=== PATIENT | male | born 1950 | race Native Hawaiian/Other Pacific Islander ===

== ENCOUNTER 2017-06-03 21:15 | Outpatient (CLI) | payer OTHER, MEDICARE ==
[~2017-06-03 21:15] MED LIST: ALLO300T23 PO; AZEL137S; CLARITIN10 MG PO; FERROUS SULF325 M1 OR; FURO40TA93 PO; GABA300C2 PO; HYDR25TA60 PO; LISI20TA11 PO; LORTAB 10-325 M1 TAB PO; NABU750T PO; OMEP40CA PO; PILOCARPINE7.5 MG OR; POTASSIUM CHLO10 ME2 PO; PRAVACHOL20 MG PO; PRED5TAB3 PO; PREDNISONE5 MG OR; SIMV20TA2 PO; TAMSULOSIN0.4 MG PO; TEMA15CA19 PO; TIZA4TAB5 PO
[2017-06-04] MEDS ORDERED: VITAMIN C1 CH1 PO (00:48)
[2017-06-04] MEDS ORDERED: PRINIVIL5 MG OR (00:48)
[2017-06-04] MEDS ORDERED: KLOR-CON SPRIN10 MEQ PO (00:49)
[2017-06-04] MEDS ORDERED: TAMS0.4C PO (00:52)
[2017-06-04] MEDS ORDERED: DOCU100C10 PO (00:52)
[2017-06-04] MEDS ORDERED: OMEP20CA PO (00:53)
[2017-06-04] MEDS ORDERED: GABA300C2 PO (00:54)
[2017-06-04] MEDS ORDERED: PRAVACHOL20 MG PO (00:55)
[2017-06-04] MEDS ORDERED: CODEINE/APAP1 TA2 PO (00:57)
[2017-06-04] MEDS ORDERED: IBUPROFEN200 MG PO (00:59)
[2017-06-04] MEDS ORDERED: TEMA30CA18 PO (01:00)
[2017-06-04] MEDS ORDERED: HYDR10TA47 PO (01:00)
[2017-06-04] MEDS ORDERED: NITROSTAT0.4 MG SL (01:01)
[2017-06-04] MEDS ORDERED: ALPHAGAN P0.1 % OP (01:01)
== END 2017-06-03 21:19 | disposition short-term general hospital (02) ==
LOC: AMB 21:15
DX: R06.09 Other forms of dyspnea (principal); R09.02 Hypoxemia
CPT/HCPCS: A0425; A0427

== ENCOUNTER 2017-06-03 21:23 | Inpatient (IN) | payer OTHER, MEDICARE ==
[~2017-06-03] VITALS: Ht 182.9 cm; Wt 106.7 kg
[2017-06-03 21:29] VITALS: BP 182/93; TEMP 98.4
[2017-06-03 22:10] LABS: PLATELET COUNT 192 K/uL (142-355)
[2017-06-03 22:19] LABS: POTASSIUM 4.2 mmol/L (3.6-5.2)
[2017-06-04] VITALS (8 sets, daily range): BP systolic 115–149; BP diastolic 52–73; TEMP 98–98.7; Ht 182.9 cm; Wt 106.7 kg
[2017-06-04] MEDS ORDERED: VITAMIN C1 CH1 PO (00:48)
[2017-06-04] MEDS ORDERED: PRINIVIL5 MG OR (00:48)
[2017-06-04] MEDS ORDERED: KLOR-CON SPRIN10 MEQ PO (00:49)
[2017-06-04] MEDS ORDERED: TAMS0.4C PO (00:52)
[2017-06-04] MEDS ORDERED: DOCU100C10 PO (00:52)
[2017-06-04] MEDS ORDERED: OMEP20CA PO (00:53)
[2017-06-04] MEDS ORDERED: GABA300C2 PO (00:54)
[2017-06-04] MEDS ORDERED: PRAVACHOL20 MG PO (00:55)
[2017-06-04] MEDS ORDERED: CODEINE/APAP1 TA2 PO (00:57)
[2017-06-04] MEDS ORDERED: IBUPROFEN200 MG PO (00:59)
[2017-06-04] MEDS ORDERED: TEMA30CA18 PO (01:00)
[2017-06-04] MEDS ORDERED: HYDR10TA47 PO (01:00)
[2017-06-04] MEDS ORDERED: ALPHAGAN P0.1 % OP (01:01)
[2017-06-04] MEDS ORDERED: NITROSTAT0.4 MG SL (01:01)
[2017-06-04 06:31] LABS: PLATELET COUNT 121 K/uL (142-355)
[2017-06-04 07:22] LABS: POTASSIUM 4.1 mmol/L (3.6-5.2)
[2017-06-05] VITALS: BP 139/64; TEMP 97.6
[2017-06-05 04:00] VITALS: BP 166/78; TEMP 97.9
[2017-06-05 08:10] VITALS: BP 145/84; TEMP 98.2
[2017-06-05 11:29] VITALS: BP 146/69; TEMP 97.7
[2017-06-05 16:23] VITALS: BP 116/67; TEMP 98.1
[2017-06-05 20:00] VITALS: BP 130/68; TEMP 98.4
[2017-06-06] VITALS: BP 140/64; TEMP 98
[2017-06-06 04:00] VITALS: BP 157/83; TEMP 98.1
[2017-06-06 05:50] LABS: POTASSIUM 3.9 mmol/L (3.6-5.2)
[2017-06-06 06:48] LABS: PLATELET COUNT 187 K/uL (142-355)
[2017-06-06 08:02] VITALS: BP 146/78; TEMP 98
[2017-06-06] MEDS ORDERED: Z-PAK PO (10:02)
[2017-06-06 12:00] VITALS: BP 91/52; TEMP 98.3
== END 2017-06-06 15:40 | disposition home or self-care (01) | DRG 195 ==
LOC: ED 21:23 → MED/SURG 06-04 00:40
PROVIDERS: Family Medicine
DX: J16.8 Pneumonia due to other specified infectious organisms (principal); D72.828 Other elevated white blood cell count; M1A.9XX0 Chronic gout, unspecified, without tophus (tophi); I10 Essential (primary) hypertension; N40.0 Benign prostatic hyperplasia without lower urinary tract symptoms; E78.4 Other hyperlipidemia
CPT/HCPCS: 36415; 36600; 80053; 80202; 82805; 83735; 85027; 87040; 93005; 94640; 94664; 94760; 96361; 96365; 96366; 96367; 99284; J0696; Q9963

== ENCOUNTER 2017-06-17 09:40 | Outpatient (CLI) | payer OTHER, MEDICARE ==
[~2017-06-17 09:40] MED LIST changes: +ALPHAGAN P0.1 % OP; +CODEINE/APAP1 TA2 PO; +DOCU100C10 PO; +HYDR10TA47 PO; +IBUPROFEN200 MG PO; +KLOR-CON SPRIN10 MEQ PO; +NITROSTAT0.4 MG SL; +OMEP20CA PO; +PRINIVIL5 MG OR; +TAMS0.4C PO; +TEMA30CA18 PO; +VITAMIN C1 CH1 PO; +Z-PAK PO
== END 2017-06-17 19:21 | disposition home or self-care (01) ==
LOC: CT 09:40
DX: G40.109 Localization-related (focal) (partial) symptomatic epilepsy and epileptic syndromes with simple partial seizures, not intractable, without status epilepticus (principal); M54.14 Radiculopathy, thoracic region; M54.17 Radiculopathy, lumbosacral region
CPT/HCPCS: 36415; 82565; 84520; Q9963

== ENCOUNTER 2017-09-16 12:45 | Outpatient (CLI) | payer OTHER, MEDICARE | END 2017-09-16 22:41 | disposition home or self-care (01) | LOC: MRI 12:45 | DX: R29.898 Other symptoms and signs involving the musculoskeletal system (principal); G37.3 Acute transverse myelitis in demyelinating disease of central nervous system; M51.36 Other intervertebral disc degeneration, lumbar region; M51.37 Other intervertebral disc degeneration, lumbosacral region ==

== ENCOUNTER 2017-09-17 12:48 | Outpatient (CLI) | payer OTHER, MEDICARE | END 2017-09-17 22:19 | disposition home or self-care (01) | LOC: MRI 12:48 | DX: R29.898 Other symptoms and signs involving the musculoskeletal system (principal); G37.3 Acute transverse myelitis in demyelinating disease of central nervous system; M51.36 Other intervertebral disc degeneration, lumbar region; M51.37 Other intervertebral disc degeneration, lumbosacral region ==

== ENCOUNTER 2017-10-20 13:15 | Emergency (ER) | payer OTHER, MEDICARE ==
[~2017-10-20] VITALS: Ht 182.9 cm; Wt 97.5 kg
[2017-10-20] VITALS (7 sets, daily range): BP systolic 100–114; BP diastolic 62–81; TEMP 98.1
[2017-10-20 14:19] LABS: PLATELET COUNT 234 K/uL (142-355)
[2017-10-20 15:38] LABS: POTASSIUM 5.3 mmol/L (3.6-5.2)
[2017-10-20] MEDS ORDERED: BAYER ASA325 M1 PO (17:14)
[2017-10-20] MEDS ORDERED: ALLERGY RELIEF180 MG PO (17:18)
== END 2017-10-20 21:10 | disposition still patient (30) ==
LOC: ED 13:15 → MED/SURG 15:20 → ED 15:20
PROVIDERS: Family Medicine
DX: I21.4 Non-ST elevation (NSTEMI) myocardial infarction (principal); J18.8 Other pneumonia, unspecified organism; J44.1 Chronic obstructive pulmonary disease with (acute) exacerbation; D72.828 Other elevated white blood cell count; I50.9 Heart failure, unspecified; R68.89 Other general symptoms and signs
CPT/HCPCS: 36415; 80053; 82550; 82553; 83880; 84484; 85027; 93005; 94664; 96361; 96365; 96372; 96375; 99285; J0456; J0696; J1650; J1940

== ENCOUNTER 2017-10-20 21:08 | Outpatient (CLI) | payer OTHER, MEDICARE ==
[~2017-10-20 21:08] MED LIST changes: +ALLERGY RELIEF180 MG PO; +BAYER ASA325 M1 PO
== END 2017-10-20 22:13 | disposition short-term general hospital (02) ==
LOC: AMB 21:08
DX: R53.1 Weakness (principal); R06.02 Shortness of breath
CPT/HCPCS: A0425; A0429

== ENCOUNTER 2017-10-26 17:57 | Outpatient (CLI) | payer OTHER, MEDICARE ==
[2017-10-27] MEDS ORDERED: CLOP75TA2 PO (11:19)
[2017-10-27] MEDS ORDERED: CARV3.12 PO (11:19)
[2017-10-27] MEDS ORDERED: ALLO300T23 PO (11:21)
[2017-10-27] MEDS ORDERED: COZAAR25 MG PO (11:21)
[2017-10-27] MEDS ORDERED: ASPIR-8181 MG PO (11:26)
[2017-10-27] MEDS ORDERED: PRAVACHOL20 MG PO (11:32)
[2017-10-27] MEDS ORDERED: TEMA30CA18 PO (11:33)
== END 2017-10-26 18:58 | disposition short-term general hospital (02) ==
LOC: AMB 17:57
DX: R41.82 Altered mental status, unspecified (principal); Z98.890 Other specified postprocedural states
CPT/HCPCS: A0425; A0427

== ENCOUNTER 2017-10-26 18:48 | Observation (INO) | payer OTHER, MEDICARE ==
[~2017-10-26] VITALS: Ht 185.4 cm; Wt 105.7 kg
[2017-10-26 18:56] VITALS: BP 122/68
[2017-10-26 19:52] LABS: PLATELET COUNT 219 K/uL (142-355)
[2017-10-26 20:03] LABS: POTASSIUM 4.6 mmol/L (3.6-5.2)
[2017-10-26 22:43] LABS: PARTIAL THROMBOPLASTIN TIME 23.6 SECONDS (24.5-33.6)
[2017-10-27 02:21] VITALS: BP 137/72; TEMP 98; Ht 185.4 cm; Wt 105.7 kg
[2017-10-27 04:00] VITALS: BP 130/87; TEMP 98.2
[2017-10-27 06:38] LABS: POTASSIUM 3.8 mmol/L (3.6-5.2)
[2017-10-27 08:00] VITALS: BP 106/52; TEMP 98.1
--- NOTE | 2017-10-27 08:45 | NUR ---
ELEVATED TROP REPORTED TO GUNNAR HIGGINS. REPEAT CE'S ORDERED. PT HAS NAD AND NO COMPLAINTS AT THIS TIME. WILL CONT TO MONITOR.
--- NOTE | 2017-10-27 10:00 | NUR ---
[facility] CONTACTED TO TRY TO GET ROOM ASSIGNMENT. 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
[2017-10-27] MEDS ORDERED: CLOP75TA2 PO (11:19)
[2017-10-27] MEDS ORDERED: CARV3.12 PO (11:19)
[2017-10-27] MEDS ORDERED: ALLO300T23 PO (11:21)
[2017-10-27] MEDS ORDERED: COZAAR25 MG PO (11:21)
[2017-10-27] MEDS ORDERED: ASPIR-8181 MG PO (11:26)
[2017-10-27] MEDS ORDERED: PRAVACHOL20 MG PO (11:32)
[2017-10-27] MEDS ORDERED: TEMA30CA18 PO (11:33)
[2017-10-27 12:00] VITALS: BP 111/53; TEMP 97.6
--- NOTE | 2017-10-27 13:00 | NUR ---
[facility] CALLED WITH ROOM ASSIGNMENT. PT GOING TO PCU ROOM 354.
--- NOTE | 2017-10-27 13:30 | NUR ---
REPORT GIVEN TO CHRIS FROM [facility]. EMS NOTIFIED TO COME GET PT.
--- NOTE | 2017-10-27 13:45 | NUR ---
D/C INSTRUCTIONS GIVEN TO PT AND FAMILY. DAUGHTER SIGNED FOR PT. PT/FAMILY EXPALINED THAT PT IS BEING TRANSFERRED TO [facility] PCU FOR CLOSER CARDIAC MONITORING AND THEY HAVE NO FUTHER QUESTIONS.
--- NOTE | 2017-10-27 14:20 | NUR ---
EMS HERE TO GET PT AT THIS TIME. PT TAKEN VIA STRETCHER. IV AND BAKER INTACT. PT HOOKED UP TO 2L O2 NC. PT WHEELED OUT WITH NO PROBLEMS NOTED.
--- NOTE | 2017-10-27 16:00 | NUR ---
[facility] ([facility]) CONTACTED TO TRY TO GET A ROOM ASSINMENT FOR PT TO BE TRANSFERRED FOR CLOSER CARDIAC MONITORING. LOVE RODRIGUEZ (NURSING INBOUND SALES REPRESENTATIVE) STATES THAT DR. MARINO SAYS THAT THERE ARE NO CRITICAL CARE BEDS AVAILABLE AND TO CALL BACK TOMORROW WHEN DR. CASTELLANOS IS ON TO SEE IF BED IS AVAILABLE THEN IF NEEDED. GUNNAR REDMOND PODIATRIST ASSISTANT NOTIFIED AND GOING TO NOTIFY DR. MOTLEY.
== END 2017-10-27 14:36 | disposition short-term general hospital (02) ==
LOC: ED 18:48 → MED/SURG 21:20
PROVIDERS: ADMIT Allergy & Immunology
PROC: 05H533Z Insertion of Infusion Device into Right Subclavian Vein, Percutaneous Approach (ICD-10-PCS; principal; 2017-10-26)
DX: R53.1 Weakness (principal); E78.4 Other hyperlipidemia; I12.9 Hypertensive chronic kidney disease with stage 1 through stage 4 chronic kidney disease, or unspecified chronic kidney disease; N18.3 Chronic kidney disease, stage 3 (moderate); I25.10 Atherosclerotic heart disease of native coronary artery without angina pectoris; G35 Multiple sclerosis; G72.89 Other specified myopathies; R79.89 Other specified abnormal findings of blood chemistry; R06.02 Shortness of breath
CPT/HCPCS: 36415; 36558; 51702; 80048; 80053; 80061; 81000; 82550; 82553; 83735; 83880; 84443; 84484; 85027; 85379; 85610; 85730; 93005; 94760; 96374; 99220; 99285; C1768; G0378; J1940

== ENCOUNTER 2017-11-08 08:52 | Outpatient (CLI) | payer OTHER, MEDICARE ==
[~2017-11-08 08:52] MED LIST changes: +ASPIR-8181 MG PO; +CARV3.12 PO; +CLOP75TA2 PO; +COZAAR25 MG PO
== END 2017-11-08 08:53 | disposition short-term general hospital (02) ==
LOC: AMB 08:52
DX: I46.9 Cardiac arrest, cause unspecified (principal)
CPT/HCPCS: A0425; A0433

== ENCOUNTER 2017-12-22 19:30 | Inpatient (IN) | payer OTHER, MEDICARE ==
[2017-12-21 20:30] VITALS: BP 142/116
[~2017-12-22] VITALS: Ht 165.1 cm; Wt 73.2 kg
[2017-12-22] VITALS (10 sets, daily range): BP systolic 54–152; BP diastolic 18–120; TEMP 97.7
[2017-12-22 21:52] LABS: PLATELET COUNT 388 K/uL (142-355)
[2017-12-22 22:27] LABS: POTASSIUM 4.1 mmol/L (3.6-5.2)
[2017-12-23] VITALS (89 sets, daily range): BP systolic 54–131; BP diastolic 26–110; TEMP 97–100; BMI 31.6
[2017-12-23 09:04] LABS: PLATELET COUNT 384 K/uL (142-355)
[2017-12-23 09:36] LABS: POTASSIUM 4.2 mmol/L (3.6-5.2)
[2017-12-24] VITALS (92 sets, daily range): BP systolic 55–132; BP diastolic 33–81; TEMP 98.7–99.5; Ht 165.1 cm; Wt 73.2 kg
[2017-12-24 04:10] LABS: PLATELET COUNT 321 K/uL (142-355)
[2017-12-24 04:42] LABS: POTASSIUM 4.4 mmol/L (3.6-5.2)
[2017-12-25] VITALS (52 sets, daily range): BP systolic 58–137; BP diastolic 29–83; TEMP 98–98.5
[2017-12-25 06:21] LABS: POTASSIUM 4.1 mmol/L (3.6-5.2)
[2017-12-25 06:22] LABS: PLATELET COUNT 273 K/uL (142-355)
== END 2017-12-25 13:50 | disposition short-term general hospital (02) | DRG 871 ==
LOC: ED 19:30 → ICU 12-23 00:50
PROVIDERS: Internal Medicine; ADMIT Family Medicine
DX: A41.02 Sepsis due to Methicillin resistant Staphylococcus aureus (principal); J15.212 Pneumonia due to Methicillin resistant Staphylococcus aureus; J96.00 Acute respiratory failure, unspecified whether with hypoxia or hypercapnia; I13.0 Hypertensive heart and chronic kidney disease with heart failure and stage 1 through stage 4 chronic kidney disease, or unspecified chronic kidney disease; N17.9 Acute kidney failure, unspecified; R65.20 Severe sepsis without septic shock; N18.3 Chronic kidney disease, stage 3 (moderate); G35 Multiple sclerosis; I25.10 Atherosclerotic heart disease of native coronary artery without angina pectoris; R00.0 Tachycardia, unspecified
CPT/HCPCS: 36558; 36591; 36600; 51702; 80053; 80200; 81000; 82550; 82553; 82805; 83605; 83615; 83880; 84484; 85027; 85379; 87040; 87070; 87077; 87185; 87186; 87205; 93005; 94760; 96361; 96365; 96372; 99285; C1768; J1265; J1650; J1940; J1956; J2543; J3260; J3490; P9047